=== PATIENT | male | born 1935 | race Asian ===

== ENCOUNTER 2024-07-03 00:53 | Observation (INO) | payer OTHER, SELFPAY ==
[2024-07-02 20:02] VITALS: BP 162/74
--- NOTE | 2024-07-02 20:15 | ED.GENMED ---
History of Present Illness
General
Chief Complaint: Fall
Source: patient and family
Time Seen by Provider: 07/02/24 20:01
History of Present Illness
History of Present Illness:
89yoM with a history of peptic ulcer disease presenting with his daughter for evaluation after a fall yesterday morning. Patient was walking up the steps and lost his footing and fell backwards. He fell down about 3 steps and landed on his back.
+Head strike, no LOC. Patient is able to ambulate today but has been complaining of mid back pain as well as pain with breathing. He also has some epigastric pain although daughter states this is chronic from his known ulcers. No blood thinners.
Phy Exam
General Physical Exam
General Presentation: well appearing and no apparent distress
General age: appears stated age
General Skin: warm and dry
General Habitus: normal
General Mental: alert
ENT Exam
ENT Exam: normocephalic and other (No external signs of head trauma. No cervical spine tenderness. )
Eye Exam
Eye Exam: PERRL
Pulmonary Exam
Pulmonary Exam: lungs clear, no respiratory distress, no rales, chest non tender, no crackles and no rhonchi
Gastrointestinal Exam
Gastrointestinal Exam: soft, non distended and other (Mild tenderness to epigastrium. Abdomen soft, non-distended. No rebound or guarding. )
Neurological Exam
Neurological Exam: alert
Blair Coma Scale
Eye Opening: Spontaneous
Verbal Response: Oriented
Motor Response: Obeys Commands
GCS Total Score: 15
Musculoskeletal Exam
Musculoskeletal Exam: other (+Thoracic spine tenderness. No step-offs or skin changes.)
Skin Exam
Skin Exam: normal color and warm/dry
Psychiatric Exam
Psychiatric Exam: normal mood/affect
Course
Orders/Labs/Results
Orders:
Orders
07/02/24 20:13
CT Cervical Spine W/o Iv Contr Urgent
Comment:
Reason For Exam: fall, neck pain
CT Chest/abd/pel W Iv Cont Urgent
Comment:
Reason For Exam: Mid back pain, epigastric pain s/p fall
07/02/24 20:14
CT Head W/o Iv Contrast Urgent
Comment:
Reason For Exam: fall, head strike
07/02/24 20:31
Complete Blood Count/With Diff Urgent
Comprehensive Metabolic Panel Urgent
Lipase Urgent
PTT Urgent
Prothrombin Time Urgent
07/02/24 21:09
Acetaminophen [Tylenol] 650 mg PO NOW STA
Lidocaine [Lidocaine 4% Patch] 1 patch TOPICAL ONCE ONE
Apply Lidocaine patch(s) to:: midback
Abnormal Lab Results
07/02/24
20:31
RBC 2.99 L 10^6/uL
(4.70-6.10)
Hgb 11.0 L g/dL
(13.0-18.0)
Hct 33.0 L %
(39.0-52.0)
MCV 110.4 H fL
(80.0-94.0)
MCH 36.8 H pg
(27.0-31.0)
Absolute Monos (auto) 1.1 H 10^3/uL
(0.1-0.6)
Monocytes % 13.1 H %
(1.7-9.3)
BUN 25 H mg/dl
(9-20)
07/02/24 20:31
07/02/24 20:31
Vital Signs
Initial and Last Documented VS:
Initial Vital Signs
Temp Pulse Resp BP Pulse Ox
97.8 F 68 14 162/74 98
07/02/24 20:02 07/02/24 20:02 07/02/24 20:02 07/02/24 20:02 07/02/24 20:02
Last Documented Vital Signs
Temp Pulse Resp BP Pulse Ox
97.8 F 68 14 162/74 98
07/02/24 20:02 07/02/24 20:02 07/02/24 20:02 07/02/24 20:02 07/02/24 20:02
MDM/Problems Addressed
Differential Diagnosis Includes:
89yoM here after a fall backwards down 3 steps yesterday morning. +Head strike. C/o midback pain. Also having epigastric pain but daughter states this is chronic and he has known PUD. +Thoracic spine tenderness without step-offs or skin changes.
Differential diagnosis includes but is not limited to: fracture, soft tissue injury, closed head injury, concussion, intracranial hemorrhage
Initial ED plan: Check abdominal labs, coags, CT head/cervical spine, and CT CAP to assess for injuries.
*Critical Care Note
Total Time (30-74mins, 75-104mins- exclusive of procedures): Not Applicable
Update Note
Update Note:
CT head shows 'Small to moderate predominantly chronic right frontal-parietal subdural hematoma with suggested superimposed minor acute component. Mass effect with mild extrinsic compression along the superficial margin of the cortex. However, no
ventricular compression and no significant midline shift.' Imaging shows age-indeterminate fractures of T9 and L3 although fractures appear chronic. Case discussed with neurosurgeon [employer], Dr. Alatorre, who recommends admission here at
[place] with plan for repeat head CT in the morning. Patient admitted for further management.
ED Attending Note
-
Portions of this chart may have been created with voice recognition software.� Occasional wrong word or��sound alike� substitutions may have occurred due to the inherent limitations of voice recognition software.
Discharge Plan
Departure
Patient Disposition: Admit
Date of Disposition: 07/02/24
Time of Disposition: 22:11
Presentation/result/management discussed w/ accepting MD/DO: Hospitalist
Discharge Problem:
Accidental fall on or from stairs or steps, Subdural hematoma
Interventions
Interventions:
*Risk Screen - Suicide Last Done: 07/02/24 18:56
*General Assessment Last Done: 07/02/24 18:56
*ED COVID-19 Vaccine History Last Done: 07/02/24 18:56
ED-Musculoskeletal Assessment Last Done: 07/02/24 20:02
ED- Neurological Assessment Last Done: 07/02/24 20:02
ED-Skin Assessment Last Done: 07/02/24 20:02
Discharge Date and Time
Print Language: ITALIAN
[2024-07-02 20:39] LABS: % Basophils 0.2 % (0-2); % Eosinophils 0.6 % (0-6); % Immature Granulocytes 0.4 % (0-0.5); % Lymphocytes 23.7 % (20.5-51.1); % Monocytes 13.1 % (1.7-9.3); Absolute Eosinophils 0.1 10^3/uL (0-0.7); Absolute Lymphocytes 1.9 10^3/uL (1.2-3.4); Absolute Monocytes 1.1 10^3/uL (0.1-0.6); Mean Corp Hgb Conc. 33.3 g/dL (33.0-37.0); Mean Corpuscular Hgb 36.8 pg (27.0-31.0); Mean Corpuscular Volume 110.4 fL (80.0-94.0); Mean Platelet Volume 9.5 fL (7.4-10.4); Nucleated Red Blood Cells % 0 % (-); Platelet Count 170 10^3/uL (130-400); Red Blood Cell Count 2.99 10^6/uL (4.70-6.10); Red Cell Dist. Width 13.6 % (11.5-14.5); White Blood Cell Count 8.1 10^3/uL (4.8-10.8)
[2024-07-02 20:48] LABS: INR 0.91; PT 12.7 Sec (11.4-14.6)
[2024-07-02 20:49] LABS: APTT 29.8 Sec (23.4-35.0)
[2024-07-02 20:54] LABS: ALT (SGPT) 11 U/L (0-50); AST (SGOT) 23 U/L (17-59); Albumin 3.9 g/dl (3.5-5.0); Alkaline Phosphatase 85 U/L (38-126); Blood Urea Nitrogen 25 mg/dl (9-20); Carbon Dioxide 25 mmol/L (22-30); Chloride 102 mmol/L (98-107); Glucose 99 mg/dl (70-99); Lipase 51 U/L (23-300); Potassium 4.3 mmol/L (3.5-5.1); Sodium 138 mmol/L (135-145); Total Bilirubin 0.6 mg/dl (0.2-1.3); Total Protein 7.4 g/dl (6.3-8.2); eGFR > 60.00
[2024-07-02] MEDS: LIDOCAINE 4% PATCH 1 PATCH TOPICAL (21:18)
[2024-07-02] MEDS: TYLENOL 650 MG PO (21:19)
[2024-07-02 22:19] VITALS: BP 138/62
--- NOTE | 2024-07-02 22:45 | HPS.HSE ---
Family Physician
-
Family Physician:
Chief Complaint
-
fall and back pain
History of Present Illness
89-year-old male past medical history of peptic ulcer disease presenting after a fall yesterday morning. Was walking up the steps and lost his footing and fell backwards. He fell down about 3 steps and landed on his back. He hit his head. Denies
loss of consciousness. Denies headache or neck pain. He has been complaining of mid back pain. No chest pain. He has some epigastric pain which daughter thinks is chronic from known ulcers. He does not eat much because of this. No vomiting or
diarrhea. He does not take blood thinners.
No numbness or tingling or speaking difficulty. He was able to walk.
No smoking history. Drinks alcohol sometimes.
Medical History
Past Medical History
Past Medical History: Reports Other (peptic ulcer disease)
Past Surgical History: Reports None
Social History
Tobacco: Non-smoker
Alcohol: Occasional
Drug: None
Family History
Family History: Not pertinent
Allergies / Home Medications
Allergies reflects when Allergies were last updated in [facility].
Home Medications with original date entered in [facility]
Allergy/Medication List:
Allergies
Allergy/AdvReac Type Severity Reaction Status Date / Time
No Known Allergies Allergy Unverified 07/02/24 18:56
Home Medications
pantoprazole 40 mg tablet,delayed release 40 mg PO DAILY 07/02/24
Review of Systems
-
History Source: Patient
A 12 point ROS was completed and negative except as noted: Yes
Constitutional: Reports No Symptoms
EENT: Reports No Symptoms
Respiratory: Reports No Symptoms
Cardiac: Reports No Symptoms
Abdomen/GI: Reports No Symptoms
: Reports No Symptoms
Musculoskeletal: Reports See HPI
Skin: Reports No Symptoms
Neurological: Reports No Symptoms
Endocrine: Reports No Symptoms
Hematologic/Lymphatic: Reports No Symptoms
Psych: Reports No Symptoms
Physical Exam
Vital Signs
Vital Signs
Temp Pulse Resp BP Pulse Ox
97.8 F 54 19 138/62 96
07/02/24 20:02 07/02/24 22:30 07/02/24 22:20 07/02/24 22:19 07/02/24 22:30
Physical Exam
General: Well Developed, Well Nourished and No Apparent Distress
HEENT: NormoCephalic, Moist mucous membranes and Atraumatic
Respiratory: Clear
Cardiac: S1/S2 and Regular Rhythm; No Murmur or Rub
GI: Soft, Non Tender, Non Distended and Normal Bowel Sounds; No Organomegaly
Rectal: Deferred by Provider
Musculoskeletal: No Clubbing, No Cyanosis and No Edema
Skin: No Rash
Neuro: Nonfocal/grossly intact
Laboratory Results
-
07/02/24 20:31
07/02/24 20:31
Laboratory Results
PT 12.7 Sec (11.4-14.6) 07/02/24 20:31
INR 0.91 07/02/24 20:31
APTT 29.8 Sec (23.4-35.0) 07/02/24 20:31
Total Bilirubin 0.6 mg/dl (0.2-1.3) 07/02/24 20:31
AST 23 U/L (17-59) 07/02/24 20:31
ALT 11 U/L (0-50) 07/02/24 20:31
Alkaline Phosphatase 85 U/L (38-126) 07/02/24 20:31
Lipase 51 U/L (23-300) 07/02/24 20:31
Data Reviewed
-
Lab Data: Labs Reviewed by me
Old Records: Reviewed
Impression/Plan
-
IMPRESSION:
PLAN:
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
-As per CT head
-GCS of 15
-CT head in the morning as per neurosurgery and consulted
# Back pain secondary to fall
-CT chest abdomen pelvis without any acute traumatic injury
-CT C-spine no acute fracture
-Tylenol for pain
Chronic abdominal pain secondary to peptic ulcer disease
-Continue Protonix
Full code
DVT prophylaxis SCDs
Regular diet
[2024-07-02 23:00] VITALS: BP 120/94
[2024-07-02] MEDS: FLUSH (NSS) 1 FLUSH IV (23:19)
[2024-07-02 23:20] VITALS: BP 172/74; BMI 16.0
[2024-07-03] VITALS (7 sets, daily range): BP systolic 108–149; BP diastolic 46–73; PULSE 79; O2SAT 98; BMI 16.0
--- NOTE | 2024-07-03 01:00 | PTCARENOTE ---
Pt transferred from ED. Pt ambulated into room with assistance. Pt Arabic speaking, daughter at bedside. Pt oriented to unit, call iverson within reach, bed alarm applied. Will continue with current plan.
[2024-07-03] MEDS: PEPCID 20 MG IV (01:44)
[2024-07-03] MEDS: NSS (PRESERVATIVE FREE) 8 ML IV (01:44)
[2024-07-03] MEDS: TYLENOL 650 MG PO (07:53)
[2024-07-03] MEDS: PROTONIX 40 MG PO (07:53)
[2024-07-03 08:01] LABS: % Basophils 0.1 % (0-2); % Immature Granulocytes 0.3 % (0-0.5); % Lymphocytes 19.1 % (20.5-51.1); % Neutrophils 60.5 % (42.2-75.2); Absolute Eosinophils 0.1 10^3/uL (0-0.7); Absolute Lymphocytes 1.5 10^3/uL (1.2-3.4); Absolute Monocytes 1.5 10^3/uL (0.1-0.6); Absolute Neutrophils 4.7 10^3/uL (1.4-6.5); Hematocrit 31.2 % (39.0-52.0); Hemoglobin 10.6 g/dL (13.0-18.0); Mean Corpuscular Hgb 36.8 pg (27.0-31.0); Mean Corpuscular Volume 108.3 fL (80.0-94.0); Mean Platelet Volume 9.7 fL (7.4-10.4); Nucleated Red Blood Cells % 0 % (-); Platelet Count 162 10^3/uL (130-400); Red Blood Cell Count 2.88 10^6/uL (4.70-6.10); Red Cell Dist. Width 13.4 % (11.5-14.5); White Blood Cell Count 7.7 10^3/uL (4.8-10.8)
[2024-07-03 08:14] LABS: ALT (SGPT) 11 U/L (0-50); AST (SGOT) 21 U/L (17-59); Albumin 3.9 g/dl (3.5-5.0); Alkaline Phosphatase 91 U/L (38-126); Blood Urea Nitrogen 25 mg/dl (9-20); Calcium 8.9 mg/dl (8.4-10.2); Carbon Dioxide 26 mmol/L (22-30); Chloride 101 mmol/L (98-107); Estimated Creatinine Clearance 43 ml/min; Glucose 88 mg/dl (70-99); Potassium 4.2 mmol/L (3.5-5.1); Sodium 137 mmol/L (135-145); Total Bilirubin 1.1 mg/dl (0.2-1.3); eGFR > 60.00
--- NOTE | 2024-07-03 09:10 | W.PN.HOSP.TC ---
Today's Communication/Plan
-
see bold
Assessment / Plan
Assessment / Plan
HPI: 89-year-old male past medical history of peptic ulcer disease presenting after a fall yesterday morning. Was walking up the steps and lost his footing and fell backwards. He fell down about 3 steps and landed on his back. He hit his head.
Denies loss of consciousness. Denies headache or neck pain. He has been complaining of mid back pain. No chest pain. He has some epigastric pain which daughter thinks is chronic from known ulcers. He does not eat much because of this. No
vomiting or diarrhea. He does not take blood thinners.
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
-GCS of 15
-Repeat head CT on 07/03 shows stability of acute on chronic right frontotemporal subdural hematoma
�Appreciate neurosurgery input, may be discharged
�Prescription given for repeat head CT in 2 weeks, with instructions to follow-up with neurosurgery in the office afterwards
#Severe constipation
No bowel movement for 1 week
Start oral laxatives, give enema
#Nausea/dry heaving/dizziness while working with PT
Give gentle IV fluids for dehydration, antiemetics as needed
# Back pain secondary to fall
-CT chest abdomen pelvis without any acute traumatic injury
-CT C-spine no acute fracture
-Pain meds prn
#Bereavement
Patient lost his last month
#Underweight
Encourage oral intake
Chronic abdominal pain secondary to peptic ulcer disease
-Continue Protonix
DVT prophylaxis SCDs due to subdural hematoma
Full code
Updated daughters at bedside and on phone 07/03
Total time spent to see the patient on the floor, examine the patient, review data and lab results, discuss treatment plan with patient, nursing staff around 51 minutes.
Physical Exam:
General: Thin, frail, no acute distress
HEENT: Normocephalic, Atraumatic, EOMI, MMM
Respiratory: Clear to Auscultation bilaterally
Cardiac: Normal S1/S2, Regular Rate and Rhythm
GI: Soft, Nontender, Nondistended, Normal Bowel Sounds
Extremities: No Clubbing, Cyanosis, or Edema
Neuro: Nonfocal/Grossly Intact
Psych: Calm, Cooperative
Derm: No Visible lesions
Anticipated Discharge: 24 - 48 hours
Subjective/Interval History
-
Date of Service: July 03, 2024
Patient complains of back pain and epigastric abdominal pain. He was lightheaded, dizzy, and dry heaving while working with physical therapy today. No fever.
Objective Data
-
Labs:
Laboratory Results
07/03/24
07:19
WBC 7.7
Hgb 10.6 L
Hct 31.2 L
Plt Count 162
Sodium 137
Potassium 4.2
Chloride 101
Carbon Dioxide 26
BUN 25 H
Creatinine 0.8
Glucose 88
Calcium 8.9
Total Bilirubin 1.1
AST 21
ALT 11
Alkaline Phosphatase 91
Vital Signs:
Vital Signs
Temp Pulse Resp BP Pulse Ox
97.9 F 56 18 138/68 96
07/03/24 07:42 07/03/24 07:42 07/03/24 07:42 07/03/24 07:42 07/03/24 07:42
I&O
07/02/24 07/03/24 07/04/24
06:59 06:59 06:59
Output Total 225 / 225
Balance -225 / -225
[2024-07-03] MEDS: ULTRAM 50 MG PO (10:42)
[2024-07-03] MEDS: MIRALAX 17 GRAMS PO (10:42)
--- NOTE | 2024-07-03 12:08 | CON.NS ---
Chief Complaint
-
Subdural hemorrhage
History of Present Illness
This is a very pleasant 89-year-old male status post fall down steps 1 day prior to admission presented to the hospital for headache and back pain. Denies any use of any anticoagulants or antiplatelet agents. He denies, denies any back pain
currently. Denies any weakness of his upper or lower extremities. CT of the head as well as chest and pelvis was obtained while in the emergency room. CT head showed a right sided subacute/chronic subdural hemorrhage with possible acute
component. When discussing with him and his they noted no other recent falls.
Review of Systems
-
10 point review of systems completed negative except stated in HPI
Medication and Allergies
Home Medications
Home Medications
�Medication �Instructions �Recorded
pantoprazole 40 mg tablet,delayed 40 mg PO DAILY 07/02/24
release
Allergies
Allergies
Allergy/AdvReac Type Severity Reaction Status Date / Time
No Known Allergies Allergy Unverified 07/02/24 18:56
Physical Exam
-
Exam:
Awake alert and oriented
Cranial nerves are intact
Motor strength is 5 of 5 upper and lower extremity strength
Sensory is normal
No cerebellar findings
No drift in upper or lower extremities
CT head shows right-sided subdural hemorrhage with chronic/subacute and possible acute components versus membrane formation. Measures 9 mm maximal thickness without any midline shift.
Problems
-
Problem Status Onset Code
Subdural hematoma S06.5XAA
Accidental fall on or from stairs or steps W10.8XXA
Assessment / Plan
-
Subdural hemorrhage
1. No acute surgical needs
2. Okay to discharge from neurosurgical perspective
3. Follow-up in [address] head
4. Okay for DVT prophylaxis if needed
5. Neurosurgery to sign off at this time please reconsult as needed
[2024-07-03] MEDS: PROTONIX IV 40 MG IV (14:42)
[2024-07-03] MEDS: NSS (PRESERVATIVE FREE) 10 ML IV (14:45)
[2024-07-03] MEDS: SENOKOT-S 2 TABLET PO ×2 (14:46→21:07)
[2024-07-03] MEDS: FLUSH (NSS) 1 FLUSH IV ×2 (14:51→17:26)
[2024-07-03] MEDS: ZOFRAN 4 MG IV (14:51)
--- NOTE | 2024-07-03 16:09 | CM ---
Pt seen bedside w/ daughter, Cassie and other family. Initial assessment completed. Admitted for a fall and back pain
Cassie assisted w/ translation. Pt lives w/ Cassie in a 2ST[facility]- 4 steps to enter. Pt was prev independent w/ ambulating, no DME. Cassie shared she assists w/ meal prep and other basic necessities for pt.
Denies SNF/VN/PT hx
Address, point of contact and insurance verified
PCP: Dr. Sandro Fry
Pharmacy: [facility]
Pt currently admitted OBS. DUGGAN form reviewed, Cassie given copy, copy placed on chart
Physical therapy evaluated pt today and is recommending HH at d/c. Per chart, PATIENT'S LAST MONTH, DAUGHTER, CASSIE, WORKS 3 DAYS A WEEK [place]' AND WHEN SHE DOES, HER OTHER SISTER WHO WORKS FROM HOME COMES AND STAYS WITH PATIENT.
Plan: Home w/ HH at d/c
[2024-07-03] MEDS: TYLENOL 1000 MG PO ×2 (17:23→21:08)
[2024-07-03] MEDS: NSS 1000 IV (17:25)
[2024-07-03] MEDS: PEPCID 20 MG PO (21:08)
[2024-07-03] MEDS: CARAFATE SUSPENSION 1 GM PO (21:17)
[2024-07-04 03:20] VITALS: BP 123/57
[2024-07-04 07:25] VITALS: BP 142/71
[2024-07-04] MEDS: CARAFATE SUSPENSION 1 GM PO ×2 (08:50→12:35)
[2024-07-04] MEDS: PROTONIX 40 MG PO (08:51)
[2024-07-04] MEDS: TYLENOL 1000 MG PO (08:51)
[2024-07-04] MEDS: SENOKOT-S 2 TABLET PO (08:53)
[2024-07-04] MEDS: MIRALAX 17 GRAMS PO (08:54)
--- NOTE | 2024-07-04 09:10 | W.PN.HOSP.TC ---
Today's Communication/Plan
-
Discharge today
Assessment / Plan
Assessment / Plan
HPI: 89-year-old male past medical history of peptic ulcer disease presenting after a fall yesterday morning. Was walking up the steps and lost his footing and fell backwards. He fell down about 3 steps and landed on his back. He hit his head.
Denies loss of consciousness. Denies headache or neck pain. He has been complaining of mid back pain. No chest pain. He has some epigastric pain which daughter thinks is chronic from known ulcers. He does not eat much because of this. No
vomiting or diarrhea. He does not take blood thinners.
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
-GCS of 15
-Repeat head CT on 07/03 shows stability of acute on chronic right frontotemporal subdural hematoma
�Appreciate neurosurgery input, may be discharged
�Prescription given for repeat head CT in 2 weeks, with instructions to follow-up with neurosurgery in the office afterwards
-Stable for discharge today
#Severe constipation
No bowel movement for 1 week
Resolved status post enema, continue laxatives upon discharge
#Nausea/dry heaving/dizziness while working with PT
Resolved, patient tolerated his breakfast this morning
He was witnessed ambulating to the bathroom without any dizziness
# Back pain secondary to fall
-CT chest abdomen pelvis without any acute traumatic injury
-CT C-spine no acute fracture
-Pain meds prn
#Bereavement
Patient lost his last month
#Underweight
Encourage oral intake
Chronic abdominal pain secondary to peptic ulcer disease
-Continue Protonix
DVT prophylaxis SCDs due to subdural hematoma
Full code
Updated daughters at bedside and on phone 07/03, 07/04
Physical Exam:
General: Thin, frail, no acute distress
HEENT: Normocephalic, Atraumatic, EOMI, MMM
Respiratory: Clear to Auscultation bilaterally
Cardiac: Normal S1/S2, Regular Rate and Rhythm
GI: Soft, Nontender, Nondistended, Normal Bowel Sounds
Extremities: No Clubbing, Cyanosis, or Edema
Neuro: Nonfocal/Grossly Intact
Psych: Calm, Cooperative
Derm: No Visible lesions
Anticipated Discharge: Today
Subjective/Interval History
-
Date of Service: July 04, 2024
Patient had a large bowel movement yesterday after his enema. He had a small bowel movement today. He ate breakfast well. No nausea, no vomiting. He is ambulating to the bathroom without any dizziness. No fever.
Objective Data
-
Vital Signs:
Vital Signs
Temp Pulse Resp BP Pulse Ox
97.5 F 55 16 142/71 97
07/04/24 07:25 07/04/24 07:25 07/04/24 07:25 07/04/24 07:25 07/04/24 07:25
I&O
07/03/24 07/04/24 07/05/24
06:59 06:59 06:59
Intake Total 200 / 200
Output Total 225 / 225 200 / 200
Balance -225 / -225 0 / 0
[2024-07-04 10:15] VITALS: BP 107/63; BP 121/66; BP 139/70; PULSE 48; PULSE 51; PULSE 56
[2024-07-04 11:35] VITALS: BP 154/70
[2024-07-04 12:21] VITALS: BP 124/64; BP 141/64; BP 155/71; BP 173/76; PULSE 53; PULSE 54; PULSE 56; O2SAT 99
--- NOTE | 2024-07-04 13:09 | W.DCSUMMARY ---
Discharge Summary
Discharge Data
Date of Admission: 07/03/24
Date of Discharge: 07/04/24
-
Pending Results: No
Hospital Course
Discharge diagnosis:
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
Severe constipation
Nausea/dry heaving/dizziness while working with physical therapy
Chronic abdominal pain secondary to peptic ulcer disease
Back pain secondary to fall
Bereavement, loss of 1 month ago
Underweight
Consults: Neurosurgery
Head CT:
Small to moderate size right-sided subdural hematoma, predominantly chronic with small to moderate superimposed acute component, without significant change from CT of preceding day.
CT chest/abd/pelvis:
No anatomic evidence to suggest acute traumatic injury in the chest, abdomen, or pelvis. No osseous fracture.
Emphysematous lung changes. Pleural parenchymal scarring in lung apices, right greater than left.
Mild localized lobular acinar opacity in the posterolateral right lower lobe. Nonspecific. Possible subclinical pneumonia.
Minor bronchiolitis in the posterolateral right middle lobe.
2 tiny 2 mm nodules in the lateral left upper lobe. There also appear to be a few tiny 1 to 2 mm nodules in the posterolateral right upper lobe. Nonspecific. Consider follow-up in one year if the patient is at increased risk.
Hospital course:
89-year-old male with a past medical history of peptic ulcer disease, chronic abdominal pain, and underweight was admitted for acute on chronic subdural hematoma secondary to a mechanical fall. Patient was seen in conjunction with neurosurgery. He
is not on any blood thinners at home. Neurosurgery recommends repeat head CT the following day. His repeat head CT showed stability of his small to moderate-sized subdural hematoma. It is classified as predominantly chronic with small to moderate
superimposed acute component. Neurology recommends repeat head CT in 2 weeks outpatient, then follow-up in the office. Prescription was provided for his repeat head CT scan.
Patient was seen in conjunction with PT. He was noted to be dizzy, nauseous, with dry heaving. He was also severely constipated, did not have a bowel movement for 1 week. This resolved with a milk of molasses enema and laxatives. Orthostatic
vital signs were negative.
Patient's daughters report that his passed 1 month ago, and he drinks alcohol intermittently, which may contribute to his falls. It was emphasized to patient and his daughters that he avoid alcohol.
Patient's medical problems have been optimized. He is discharged home with home PT. He needs to follow-up with his primary care doctor in 1 week, and neurosurgery in the office in 2-3 weeks.
Disposition: Home with home PT
Discharge planning: Required 42 minutes
Discharge Plan
-
Patient Disposition: Home with Home Care
Discharge Diagnosis/Procedures: Acute on chronic subdural hematoma, severe constipation, nausea/dry heaving, dizziness, bereavement, weakness, underweight
Condition: Fair
Diet: Regular and Supplements
Additional Diets: Protein shake such as boost or ensure twice a day as tolerated
Activity: As tolerated
Driving Restrictions: As prior to admission
Others Tests: Head CT in 2 weeks, script provided
Activity Restrictions/Additional Instructions:
Please schedule a head CT in 2 weeks. Then follow-up with neurosurgery afterwards.
Referrals:
Jairo Alatorre DO [Active] - (f/u [address] head without contrast. Call office to schedule)
Sandro Fry MD [Family Provider] - in one week
Prescriptions:
New
sennosides-docusate sodium 8.6-50 mg Tablet
2 tab PO HS Qty: 60 0RF
acetaminophen [Tylenol Extra Strength] 500 mg Tablet
1,000 mg PO TID Qty: 120 0RF
famotidine 20 mg Tablet
20 mg PO HS Qty: 30 0RF
oxycodone 5 mg Tablet
5 mg PO TIDPRN PRN (Reason: severe pain) Qty: 30 0RF
polyethylene glycol 3350 17 gram/dose powder
17 g PO DAILY Qty: 510 0RF
lidocaine 4 % adhesive patch,medicated
1 patch topical DAILY PRN (Reason: Pain) Qty: 30 0RF
Continued
pantoprazole 40 mg Tablet,Delayed Release (Dr/Ec)
40 mg PO DAILY
Discharge Orders:
Discharge Patient (As Directed); Ordered 07/04/24
Ordered By: Keenan Cuellar
Discharge Date and Time
Discharge Date/Time: 07/04/24 15:09
Print Language: MARSHALLESE
--- NOTE | 2024-07-04 13:41 | CM ---
Pt stable for d/c today. Daughter at bedside, agreeable to d/c
CM offered HH as recommended, daughter declined need at this time
IMM reviewed, daughter given copy, copy placed in chart
No CM needs at this time
Plan: Home; no needs
[2024-07-04] MEDS: FLUAD (65 yr+) 2024-2025 FORMULA 0.5 ML IM (14:06)
== END 2024-07-04 15:09 | disposition home or self-care (01) ==
LOC: 4 WEST ACU 00:53
PROVIDERS: Physician Assistant; ADMITTING PHYSICIAN Hospitalist; ATTENDING PHYSICIAN Family Medicine; CONSULT PHYSICIAN Neurological Surgery; EMERGENCY PHYSICIAN Emergency Medicine; FAMILY PHYSICIAN Internal Medicine
DX: S06.5X0A Traumatic subdural hemorrhage without loss of consciousness, initial encounter (principal); S06.A0XA Traumatic brain compression without herniation, initial encounter; M54.6 Pain in thoracic spine; R10.13 Epigastric pain; R91.8 Other nonspecific abnormal finding of lung field; G89.29 Other chronic pain; R42 Dizziness and giddiness; E86.0 Dehydration; J98.11 Atelectasis; K86.89 Other specified diseases of pancreas; M47.812 Spondylosis without myelopathy or radiculopathy, cervical region; R63.6 Underweight; M47.816 Spondylosis without myelopathy or radiculopathy, lumbar region; M48.56XA Collapsed vertebra, not elsewhere classified, lumbar region, initial encounter for fracture; K59.00 Constipation, unspecified; W10.9XXA Fall (on) (from) unspecified stairs and steps, initial encounter; Y93.01 Activity, walking, marching and hiking; Y92.009 Unspecified place in unspecified non-institutional (private) residence as the place of occurrence of the external cause; Z87.11 Personal history of peptic ulcer disease; Z90.49 Acquired absence of other specified parts of digestive tract; Z63.4 Disappearance and death of family member; Z68.1 Body mass index [BMI] 19.9 or less, adult; Z23 Encounter for immunization
CPT/HCPCS: 70450; 71260; 72125; 74177; 80053; 83690; 85025; 85610; 85730; 90662; 97116; 97163; 97166; 97530; 99284; G0008; G0378; Q9967